=== PATIENT | female | born 1975 | race Caucasian/White ===

== ENCOUNTER 2024-04-29 15:05 | Inpatient (IN) | payer OTHER ==
[2024-04-29 16:32] VITALS: BMI 23.7
[2024-04-29] MEDS ORDERED: P-EPHED 60MG/TRIPROLIDI 2.5MG TABLET PO PRN (17:14)
[2024-04-29] MEDS ORDERED: BISMUTH SUBSALICYLATE 524 MG/30 ML PO PRN (17:14)
[2024-04-29] MEDS ORDERED: LOPERAMIDE HCL 2 MG CAPSULE PO PRN (17:14)
[2024-04-29] MEDS ORDERED: DICYCLOMINE HCL 10 MG CAPSULE PO PRN (17:14)
[2024-04-29] MEDS ORDERED: NALOXONE (NARCAN) HCL 4 MG/0.1 ML SPRAY NS PRN (17:14)
[2024-04-29] MEDS ORDERED: MAG HYDROX/AL HYDROX/SIMETH 30 ML UNIT-DOSE CUP PO PRN (17:14)
[2024-04-29] MEDS ORDERED: ONDANSETRON *ODT* 4 MG TABLET SL PRN (17:14)
[2024-04-29] MEDS ORDERED: guaiFENesin 600 MG TABLET.ER (FP) PO PRN (17:14)
[2024-04-29] MEDS ORDERED: IBUPROFEN 400 MG TABLET (FP) PO PRN (17:14)
[2024-04-29] MEDS ORDERED: MAGNESIUM HYDROX 2400MG/30ML ORAL SUSPENSION 30 ML CUP PO PRN (17:14)
[2024-04-29] MEDS ORDERED: BENZONATATE 200 MG CAPSULE PO PRN (17:14)
[2024-04-29] MEDS ORDERED: BENZOCAINE/MENTHOL (CHLORASEPTIC ) LOZENGE MM PRN (17:14)
[2024-04-29] MEDS ORDERED: POLYETHYLENE GLYCOL (HEALTHYLAX) 3350 17 GM PACKET PO PRN (17:14)
[2024-04-29] MEDS ORDERED: IBUPROFEN 600 MG TABLET (FP) PO PRN (17:14)
[2024-04-29] MEDS: methaDONE HCL 10 MG TABLET (FOR DETOX USE ONLY) PO ONE (21:41)
[2024-04-29] MEDS: cloNIDine HCL 0.1 MG TABLET PO PRN (21:42)
[2024-04-29] MEDS: THIAMINE 100 MG TABLET PO SCH (21:42)
[2024-04-29] MEDS: MELATONIN 5 MG TABLETS PO SCH (21:43)
[2024-04-29] MEDS: METHOCARBAMOL 500 MG TABLET PO PRN (21:43)
[2024-04-29] MEDS: NICOTINE POLACRILEX 2 MG GUM BUC PRN (21:44)
[2024-04-30] MEDS: PRENATAL VITAMINS W/ FOLIC ACID TABLET (FP) PO SCH (09:27)
[2024-04-30] MEDS: diazePAM 5 MG TABLET PO PRN (15:11)
[2024-04-30] MEDS: NICOTINE POLACRILEX 4 MG GUM BUC PRN (16:32)
[2024-04-30 17:07] LABS: EPI CELLS 36 /uL (0-25.1); HYALINE CASTS 1 /uL (0-3.1); PH,URINE 6.5 (5.0-8.0); URINE APPEARANCE CLEAR; URINE BACTERIA 227 /uL (0-1359); URINE BILIRUBIN NEGATIVE (NEGATIVE); URINE COLOR YELLOW; URINE GLUCOSE (UA) NEGATIVE (NEGATIVE); URINE KETONE NEGATIVE (NEGATIVE); URINE LEUK ESTERASE 3+ (NEGATIVE); URINE NITRITE NEGATIVE (NEGATIVE); URINE PROTEIN NEGATIVE (NEGATIVE); URINE RBC 37 /uL (0-23.9); URINE UROBILINOGEN 0.2 mg/dL (0.2-1.0); URINE WBC 777 /uL (0-25.8)
[2024-04-30] MEDS: QUEtiapine FUMARATE 25 MG TABLET PO SCH (22:51)
[2024-04-30] MEDS: MELATONIN 5 MG TABLETS PO SCH (22:52)
[2024-05-01] MEDS: methaDONE HCL 10 MG TABLET (FOR DETOX USE ONLY) PO ONE (09:54)
[2024-05-01 15:03] LABS: HEMATOCRIT 38.1 % (32.4-45.2); HEMOGLOBIN 12.7 GM/dL (10.7-15.3); MCH 31.1 pg (25.7-33.7); MCHC 33.3 g/dl (32.0-36.0); MEAN CELL VOLUME 93.4 fl (80-96); MEAN PLT VOLUME 7.8 fl (7.5-11.1); PLATELET COUNT 237 10^3/uL (134-434); RBC 4.08 M/mm3 (3.60-5.2); RDW 14.3 % (11.6-15.6); WHITE BLOOD COUNT 6.3 K/mm3 (4.0-10.0)
[2024-05-01 15:23] LABS: POTASSIUM 4.4 mmol/L (3.5-5.1)
[2024-05-01 15:26] LABS: ALBUMIN 3.3 g/dl (3.4-5.0); BLOOD UREA NITROGEN 12.5 mg/dL (7-18)
[2024-05-01 15:29] LABS: CREATININE 0.5 mg/dL (0.55-1.3)
[2024-05-01 15:31] LABS: BILIRUBIN,TOTAL 0.3 mg/dL (0.2-1); TOT PROT 6.6 g/dl (6.4-8.2)
[2024-05-02] MEDS: diazePAM 5 MG TABLET PO PRN (14:58)
[2024-05-03] MEDS: methaDONE HCL 10 MG TABLET (FOR DETOX USE ONLY) PO ONE (09:39)
[2024-05-03] MEDS: NICOTINE POLACRILEX 2 MG LOZENGE BC PRN (11:13)
[2024-05-03] MEDS: cloNIDine HCL 0.1 MG TABLET PO PRN (18:18)
[2024-05-03] MEDS: ASPIRIN 81 MG CHEWABLE TABLETS PO ONE (18:18)
[2024-05-03] MEDS: DOXYCYCLINE HYCLATE 100 MG CAPSULE PO SCH (19:17)
[2024-05-03] MEDS: metroNIDAZOLE 250 MG TABLET PO SCH (21:50)
[2024-05-04] MEDS: ACETAMINOPHEN 325 MG TABLET (FP) PO PRN (05:23)
[2024-05-04 08:03] VITALS: RESP 16
[2024-05-04] MEDS: DOXYCYCLINE HYCLATE 100 MG TABLET PO SCH (09:06)
[2024-05-04 11:29] VITALS: BP 139/80; PULSE 74; TEMP 98.5
== END 2024-05-04 09:12 | disposition home or self-care (01) | DRG 773 ==
LOC: YASAS 15:05 → Y6N 17:36
PROVIDERS: ADMIT Allergy & Immunology; ATTEND Surgery
PROC: HZ2ZZZZ Detoxification Services for Substance Abuse Treatment (ICD-10-PCS; principal; 2024-04-29)
DX: F11.23 Opioid dependence with withdrawal (principal); F14.20 Cocaine dependence, uncomplicated; F17.210 Nicotine dependence, cigarettes, uncomplicated; N39.0 Urinary tract infection, site not specified; B96.20 Unspecified Escherichia coli [E. coli] as the cause of diseases classified elsewhere; Z72.51 High risk heterosexual behavior; Z86.69 Personal history of other diseases of the nervous system and sense organs; Z86.11 Personal history of tuberculosis
CPT/HCPCS: 36415; 71045-TC-FY; 80053; 80305; 80307; 81003; 81025; 85027; 86780; 87086; 87186; 93005; 93010